=== PATIENT | male | born 1950 | race Caucasian/White ===

== ENCOUNTER 2018-01-24 08:00 | Outpatient (CLI) | payer MEDICARE, BC ==
[2018-01-24 12:20] LABS: BASOPHILS % (AUTO) 0.8 %; EOSINOPHILS # (AUTO) 0.1 10^3/uL (0.0-0.7); EOSINOPHILS % (AUTO) 2.4 %; HGB - HEMOGLOBIN 13.7 g/dL (14.0-18.0); LYMPHOCYTES # (AUTO) 0.8 10^3/uL (1.5-3.5); LYMPHOCYTES % (AUTO) 19.2 %; MEAN CORPUSCULAR HEMOGLOBIN 30.6 pg (27.0-31.0); MEAN CORPUSCULAR HGB CONC 35.4 g/dL (32.0-36.0); MEAN CORPUSCULAR VOLUME 86.3 fL (80.0-94.0); MONOCYTES # (AUTO) 0.3 10^3/uL (0.0-1.0); MONOCYTES % (AUTO) 6.9 %; NEUTROPHILS # (AUTO) 2.9 10^3/uL (1.5-6.6); NEUTROPHILS % (AUTO) 70.7 %; PLT - PLATELET COUNT 136 10^3/uL (130-450); RED BLOOD COUNT 4.48 10^6/uL (4.70-6.10); WHITE BLOOD COUNT 4.1 x10^3/uL (4.8-10.8)
[2018-01-24 12:42] LABS: ALBUMIN 3.4 g/dL (3.2-5.5); ALBUMIN/GLOBULIN RATIO 1.1 (1.0-2.2); ALKALINE PHOSPHATASE 86 IU/L (42-121); ALT ALANINE AMINOTRANSFERASE 16 IU/L (10-60); AST ASPARTATE AMINOTRANSFERASE 22 IU/L (10-42); BILIRUBIN,TOTAL 0.8 mg/dL (0.2-1.0); BUN - BLOOD UREA NITROGEN 18 mg/dL (6-20); CALCIUM 8.7 mg/dL (8.5-10.3); CARBON DIOXIDE - CO2 25 mmol/L (21-32); CHLORIDE 106 mmol/L (101-111); CHOL/HDL RATIO 5.2 (<5.0); CHOLESTEROL 258 mg/dL; GFR - MDRD 74 (>89); GLUCOSE 99 mg/dL (70-100); HDL CHOLESTEROL 50 mg/dL; LDL CHOLESTEROL,CALCULATED 186 mg/dL; LDL/HDL RATIO 3.7 (<3.6); SODIUM 139 mmol/L (135-145); TOTAL PROTEIN 6.4 g/dL (6.7-8.2); VLDL CHOLESTEROL 22 mg/dL
== END 2018-01-24 08:01 | disposition home or self-care (01) ==
LOC: LAB.WCP 08:00
PROVIDERS: ATTEND Family Medicine
DX: E78.5 Hyperlipidemia, unspecified (principal); Z12.5 Encounter for screening for malignant neoplasm of prostate
CPT/HCPCS: 36415; 80053; 80061; 84443; 85025; G0103; 83721; 84153

== ENCOUNTER 2019-01-31 06:11 | Day surgery (SDC) | payer MEDICARE, BC ==
[2019-01-31] MEDS ORDERED: ROCURONIUM 50 MG/5 ML VIAL IVP ONE (06:12)
[2019-01-31] MEDS ORDERED: MIDAZOLAM 2 MG/2 ML VIAL IVP ONE (06:12)
[2019-01-31] MEDS ORDERED: DEXAMETHASONE 4 MG/ML VIAL IVP ONE (06:12)
[2019-01-31] MEDS ORDERED: PROPOFOL 200 MG/20 ML VIAL IVP ONE (06:12)
[2019-01-31] MEDS ORDERED: fentaNYL 100 MCG/2 ML VIAL IVP ONE (06:12)
[2019-01-31] MEDS ORDERED: GLYCOPYRROLATE 1 MG/5 ML VIAL IVP ONE (06:12)
[2019-01-31] MEDS ORDERED: NEOSTIGMINE 1 MG/1 ML 10 ML MDV IVP ONE (06:12)
[2019-01-31] MEDS ORDERED: CEFAZOLIN SODIUM IN 0.9 % NACL 2 GM/100 ML BAG IV ONE (06:39)
[2019-01-31] MEDS ORDERED: LACTATED RINGERS 1,000 ML IV ONE ×2 (06:43→09:35)
[2019-01-31] MEDS ORDERED: ceFAZolin 1 GM VIAL ONE (07:02)
[2019-01-31] MEDS ORDERED: BUPIVACAINE 0.5%-EPI 1:200000 PF 30 ML VIAL ONE (07:02)
[2019-01-31] MEDS ORDERED: LIDOCAINE-MPF 1% 30 ML VIAL ONE (07:03)
--- NOTE | 2019-01-31 07:06 | ANESTHESIA ---
Pre-Anesthesia VS, & Labs - Diagnosis R inguinal hernia - Procedure R inguinal hernia repair Vital Signs: Temp Pulse Resp BP Pulse Ox 37.2 C 67 16 122/81 H 95 01/31/19 06:25 01/31/19 06:25 01/31/19 06:25 01/31/19 06:25 01/31/19 06:25 Height 5 ft 10 in Weight (kg) 79 kg Body Mass Index 24.5 - NPO >8 hours Home Medications and Allergies Allergies/Adverse Reactions: Allergies Allergy/AdvReac Type Severity Reaction Status Date / Time No Known Drug Allergies Allergy Verified 05/25/14 07:01 Anes History & Medical History - Anesthetic History Anesthesia Complications: reports: No previous complications - Medical History Cardiovascular: reports: None Pulmonary: reports: None Gastrointestinal: reports: None Urinary: reports: None Musculoskeletal: reports: None Endocrine/Autoimmune: reports: None Skin: reports: None - Surgical History General: Colonoscopy, Other Eyes Ears Nose Throat (EENT): Tonsil/Adenoidectomy Orthopedic: Other Exam General: Alert, Oriented x3, Cooperative Dental: WNL Mouth Opening: Greater than 4 Fingerbreadths Neck Mobility: Normal Mallampati classification: I Thyromental Distance: 4-6 cm Respiratory: Lungs clear, Normal breath sounds, No respiratory distress Cardiovascular: Regular rate Neurological: Normal speech Mental/Cognitive Status: Alert/Oriented X3, Normal for patient Cognitive Status: Within normal limits Plan Anesthesia Type: General Consent for Procedure(s) Verified and Reviewed: Yes Code Status: Attempt Resuscitation ASA classification: 2-Mild systemic disease Is this case an emergency?: No
[2019-01-31] MEDS ORDERED: LIDOCAINE 1% 50 ML MDV SUBQ ONE (08:32)
[2019-01-31] MEDS ORDERED: BUPIVACAINE 0.5%-EPI 1:200000 PF 30 ML VIAL SUBQ ONE (08:32)
[2019-01-31] MEDS ORDERED: oxyCODONE 5 MG TABLET PO PRN (09:10)
[2019-01-31] MEDS ORDERED: HYDROmorphone 0.5 MG/0.5 ML SYRINGE IVP PRN (09:10)
[2019-01-31] MEDS ORDERED: ONDANSETRON 4 MG/2 ML VIAL IVP PRN (09:10)
--- NOTE | 2019-01-31 09:29 | OPERATIVE REPORT ---
Operative Report - General Procedure Date: 01/31/19 Planned Procedure: Right Inguinal Hernia Repair Pre-Op Diagnosis: Right Inguinal Hernia Procedure Performed: Right Inguinal Hernia Repair Post Op Diagnosis: Right Inguinal Hernia - Procedure Note Primary Surgeon: Sharona Anesthesia Technique: General LMA, Local, Regional block Estimated Blood Loss (mL): 10 Indications: Painful right inguinal hernia Findings: Large indirect right inguinal hernia Complications: None apparent - Other Other Information/Narrative: After obtaining informed consent, the patient is brought to the operating room and placed in the supine position on the operating table. Following successful induction of general anesthesia, appropriate padding of all bony prominences and placement of appropriate monitors, the right groin was prepped and draped in the standard surgical fashion. A Time Out was held per [facility]OAP protocol. All elements of the surgical safety checklist were observed before, during, and after the procedure. We began the procedure by performing and ileoinguinal nerve block on the right.This was done by injecting a mixture of local anesthetics medial to the anterior superior iliac spine on the right side. We then selected a site for an incision in the right lower quadrant just superior and lateral to the pubic tubercle. This was anesthetized with local anesthetic as well. An incision was created here and carried down through the skin and subcutaneous tissue. It was extended through Cezar's fascia to reveal the external oblique aponeurosis. The aponeurosis was then opened in the direction of its fibers revealing the spermatic cord and the hernia sac. The hernia sac was located in the anterior medial position and consisted primarily of a large cord lipoma and a small sac. These were carefully dissected free from the cord structures and allowed to retract back into the abdominal cavity. The wound was then checked for hemostasis and irrigated with warm saline solution. We elected to repair the defect with a large PHS implant. This was dipped in Ancef solution and deployed into the defect per manufacturers directions. The posterior leaflet was straightened and flattened in the preperitoneal space. A kirk was created in the anterior leaflet so that the spermatic cord to come through this opening without being constricted. Once the spermatic cord was seated in the space, the neck was reapproximated with a single piece of Prolene suture.The anterior leaflet was tucked under the external oblique aponeurosis laterally and sewn to Eh's ligament medially with Vicryl suture. The wound was checked again for hemostasis and irrigated with saline solution.The external oblique aponeurosis was closed with running Vicryl suture, Cezar's fascia was closed with running Vicryl suture, and Monocryl stitches were placed in the skin. All sponge, needle, and instrument counts were correct at the conclusion of the case. The patient was allowed awaken from anesthesia without difficulty and taken to the postanesthesia care unit in good condition.
[2019-01-31 10:34] VITALS: BP 121/76
== END 2019-01-31 06:12 | disposition home or self-care (01) ==
LOC: SDS 06:11
PROVIDERS: ATTEND Surgery
PROC: 0VBF0ZZ Excision of Right Spermatic Cord, Open Approach (ICD-10-PCS; 2019-01-31)
PROC: 0YU50JZ Supplement Right Inguinal Region with Synthetic Substitute, Open Approach (ICD-10-PCS; principal; 2019-01-31 07:30)
DX: K40.90 Unilateral inguinal hernia, without obstruction or gangrene, not specified as recurrent (principal); D17.6 Benign lipomatous neoplasm of spermatic cord
CPT/HCPCS: 49505; C1781; J0690; J7120

== ENCOUNTER 2019-09-15 08:53 | Outpatient (CLI) | payer MEDICARE, BC ==
[2019-09-15 11:48] LABS: BASOPHILS % (AUTO) 0.6 %; EOSINOPHILS # (AUTO) 0.1 10^3/uL (0.0-0.7); EOSINOPHILS % (AUTO) 1.8 %; HGB - HEMOGLOBIN 14.1 g/dL (14.0-18.0); LYMPHOCYTES # (AUTO) 0.8 10^3/uL (1.5-3.5); LYMPHOCYTES % (AUTO) 22.5 %; MEAN CORPUSCULAR HEMOGLOBIN 30.2 pg (27.0-31.0); MEAN CORPUSCULAR HGB CONC 33.3 g/dL (32.0-36.0); MEAN CORPUSCULAR VOLUME 90.8 fL (80.0-94.0); MEAN PLATELET VOLUME 10.1 fL (7.4-11.4); MONOCYTES # (AUTO) 0.2 10^3/uL (0.0-1.0); MONOCYTES % (AUTO) 6.8 %; NEUTROPHILS # (AUTO) 2.3 10^3/uL (1.5-6.6); PLT - PLATELET COUNT 144 10^3/uL (130-450); RED BLOOD COUNT 4.67 10^6/uL (4.70-6.10); WHITE BLOOD COUNT 3.4 x10^3/uL (4.8-10.8)
[2019-09-15 12:10] LABS: ALBUMIN 3.4 g/dL (3.2-5.5); ALBUMIN/GLOBULIN RATIO 1.1 (1.0-2.2); BILIRUBIN,TOTAL 0.8 mg/dL (0.2-1.0); CALCIUM 8.9 mg/dL (8.5-10.3); TOTAL PROTEIN 6.4 g/dL (6.7-8.2)
[2019-09-15 12:33] LABS: CHOL/HDL RATIO 4.5 (<5.0); CHOLESTEROL 269 mg/dL; HDL CHOLESTEROL 60 mg/dL; LDL CHOLESTEROL,CALCULATED 190 mg/dL; LDL/HDL RATIO 3.2 (<3.6); VLDL CHOLESTEROL 19 mg/dL
== END 2019-09-15 23:59 | disposition home or self-care (01) ==
LOC: LAB.WCP 08:53
PROVIDERS: ATTEND Family Medicine
DX: C91.10 Chronic lymphocytic leukemia of B-cell type not having achieved remission (principal); C85.90 Non-Hodgkin lymphoma, unspecified, unspecified site; E78.5 Hyperlipidemia, unspecified; Z12.5 Encounter for screening for malignant neoplasm of prostate; R59.1 Generalized enlarged lymph nodes; D69.6 Thrombocytopenia, unspecified
CPT/HCPCS: 36415; 80053; 80061; 82248; 83615; 84443; 85025; G0103; 83721; 84153

== ENCOUNTER 2020-09-20 08:36 | Outpatient (CLI) | payer MEDICARE, BC ==
[2020-09-20 11:52] LABS: BASOPHILS % (AUTO) 0.9 %; EOSINOPHILS % (AUTO) 0.9 %; HCT - HEMATOCRIT 41.3 % (42.0-52.0); HGB - HEMOGLOBIN 13.6 g/dL (14.0-18.0); LYMPHOCYTES # (AUTO) 0.7 10^3/uL (1.5-3.5); LYMPHOCYTES % (AUTO) 22.1 %; MEAN CORPUSCULAR HEMOGLOBIN 29.6 pg (27.0-31.0); MEAN CORPUSCULAR HGB CONC 32.9 g/dL (32.0-36.0); MEAN CORPUSCULAR VOLUME 89.8 fL (80.0-94.0); MEAN PLATELET VOLUME 9.8 fL (7.4-11.4); MONOCYTES # (AUTO) 0.3 10^3/uL (0.0-1.0); MONOCYTES % (AUTO) 7.8 %; NEUTROPHILS # (AUTO) 2.2 10^3/uL (1.5-6.6); PLT - PLATELET COUNT 150 10^3/uL (130-450); RED CELL DISTRIBUTION WIDTH 12.6 % (12.0-15.0); WHITE BLOOD COUNT 3.2 x10^3/uL (4.8-10.8)
[2020-09-20 12:20] LABS: ALBUMIN 3.5 g/dL (3.2-5.5); ALBUMIN/GLOBULIN RATIO 1.1 (1.0-2.2); ALKALINE PHOSPHATASE 71 IU/L (42-121); ALT ALANINE AMINOTRANSFERASE 16 IU/L (10-60); AST ASPARTATE AMINOTRANSFERASE 21 IU/L (10-42); BILIRUBIN,TOTAL 0.8 mg/dL (0.2-1.0); BUN - BLOOD UREA NITROGEN 16 mg/dL (6-20); CARBON DIOXIDE - CO2 28 mmol/L (21-32); CHLORIDE 105 mmol/L (101-111); CHOL/HDL RATIO 4.9 (<5.0); CHOLESTEROL 279 mg/dL; GFR - MDRD 74 (>89); GLUCOSE 104 mg/dL (70-100); HDL CHOLESTEROL 57 mg/dL; LDL CHOLESTEROL,CALCULATED 204 mg/dL; LDL/HDL RATIO 3.6 (<3.6); POTASSIUM 4.5 mmol/L (3.5-5.0); SODIUM 140 mmol/L (135-145); TOTAL PROTEIN 6.7 g/dL (6.7-8.2); TRIGLYCERIDES 88 mg/dL; VLDL CHOLESTEROL 18 mg/dL
[2020-09-20 12:29] LABS: THYROID STIMULATING HORMONE 1.28 uIU/mL (0.34-5.60)
== END 2020-09-20 23:59 | disposition home or self-care (01) ==
LOC: LAB.WCP 08:36
PROVIDERS: ATTEND Family Medicine
DX: E78.5 Hyperlipidemia, unspecified (principal); N40.2 Nodular prostate without lower urinary tract symptoms; C85.90 Non-Hodgkin lymphoma, unspecified, unspecified site
CPT/HCPCS: 36415; 80053; 80061; 83721; 84153; 84443; 85025

== ENCOUNTER 2023-10-11 07:08 | Outpatient (CLI) | payer MEDICARE, BC ==
[2023-10-11 11:47] LABS: BASOPHILS % (AUTO) 0.5 %; EOSINOPHILS # (AUTO) 0.1 10^3/uL (0.0-0.7); HGB - HEMOGLOBIN 14.1 g/dL (14.0-18.0); LYMPHOCYTES # (AUTO) 0.7 10^3/uL (1.5-3.5); LYMPHOCYTES % (AUTO) 19.6 %; MEAN CORPUSCULAR HEMOGLOBIN 29.5 pg (27.0-31.0); MEAN CORPUSCULAR HGB CONC 33.6 g/dL (32.0-36.0); MEAN CORPUSCULAR VOLUME 87.9 fL (80.0-94.0); MONOCYTES # (AUTO) 0.2 10^3/uL (0.0-1.0); MONOCYTES % (AUTO) 6.2 %; NEUTROPHILS # (AUTO) 2.6 10^3/uL (1.5-6.6); NEUTROPHILS % (AUTO) 70.4 %; PLT - PLATELET COUNT 160 10^3/uL (130-450); RED BLOOD COUNT 4.78 10^6/uL (4.70-6.10); RED CELL DISTRIBUTION WIDTH 12.7 % (12.0-15.0); WHITE BLOOD COUNT 3.7 x10^3/uL (4.8-10.8)
[2023-10-11 12:16] LABS: ALBUMIN 3.6 g/dL (3.2-5.5); ALBUMIN/GLOBULIN RATIO 1.4 (1.0-2.2); ALKALINE PHOSPHATASE 66 IU/L (42-121); ALT ALANINE AMINOTRANSFERASE 13 IU/L (10-60); AST ASPARTATE AMINOTRANSFERASE 15 IU/L (10-42); BILIRUBIN,TOTAL 0.8 mg/dL (0.2-1.0); BUN - BLOOD UREA NITROGEN 13 mg/dL (6-20); CALCIUM 9.4 mg/dL (8.5-10.3); CARBON DIOXIDE - CO2 29 mmol/L (21-32); CHLORIDE 107 mmol/L (101-111); CHOL/HDL RATIO 4.7 (<5.0); CHOLESTEROL 278 mg/dL; GFR - MDRD 73 (>89); GLUCOSE 99 mg/dL (74-104); HDL CHOLESTEROL 59 mg/dL; LDL CHOLESTEROL,CALCULATED 188 mg/dL; LDL/HDL RATIO 3.2 (<3.6); POTASSIUM 4.1 mmol/L (3.5-4.5); SODIUM 139 mmol/L (135-145); TOTAL PROTEIN 6.2 g/dL (6.4-8.9); TRIGLYCERIDES 155 mg/dL (48-352); VLDL CHOLESTEROL 31 mg/dL
== END 2023-10-11 07:09 | disposition home or self-care (01) ==
LOC: LAB.N 07:08
PROVIDERS: ATTEND Internal Medicine
DX: E78.5 Hyperlipidemia, unspecified (principal); C83.00 Small cell B-cell lymphoma, unspecified site; Z12.5 Encounter for screening for malignant neoplasm of prostate
CPT/HCPCS: 36415; 80053; 80061; 83615; 85025; G0103; 83721; 84153

== ENCOUNTER 2023-10-18 12:01 | Outpatient (CLI) | payer MEDICARE, BC ==
--- NOTE | 2023-10-18 16:27 | XRAY Report ---
PROCEDURE: Shoulder 2+V RT INDICATIONS: PAIN IN RIGHT SHOULDER TECHNIQUE: 3 views of the shoulder were acquired. COMPARISON: None. FINDINGS: Bones: No fractures or dislocations. No suspicious bony lesions. Visualized ribs appear intact. Arthritic changes are present at the acromioclavicular and glenohumeral joint space. Soft tissues: No suspicious soft tissue calcifications. The visualized lungs are within normal limi ts. IMPRESSION: No visualized acute fracture or dislocation. However, occult injury cannot be excluded. Recommend juan diego rt interval imaging follow-up in 7-10 days as clinically indicated for additional evaluation. Reviewed by: Susy Vasquez MD on 10/18/2023 4:26 PM PDT Approved by: Susy Vasquez MD on 10/18/2023 4:26 PM PDT Station ID: [id number]
== END 2023-10-18 12:02 | disposition home or self-care (01) ==
LOC: DI.N 12:01
PROVIDERS: ATTEND Internal Medicine
DX: M19.011 Primary osteoarthritis, right shoulder (principal)